=== PATIENT | female | born 1980 | race African-American/Black ===

== ENCOUNTER 2024-10-05 10:29 | Emergency (ER) | payer BC ==
[~2024-10-05] VITALS: Ht 162.6 cm; Wt 79.8 kg
[2024-10-05 10:36] VITALS: RESP 16
[2024-10-05] MEDS ORDERED: MULTI-VITAMIN1 EACH PO (10:41)
[2024-10-05] MEDS: KETOROLAC TROMETHAMINE 30 MG/ML VIAL IV STA (11:14)
[2024-10-05] MEDS: SODIUM CHLORIDE 0.9% 1000ML 1,000 ML IV SCH (11:14)
[2024-10-05] MEDS: METOCLOPRAMIDE HCL 10 MG/2ML VIAL IV ONE (11:15)
[2024-10-05] MEDS ORDERED: DIPHENHYDRAMINE HCL INJ 50 MG/ML VIAL ONE (11:17)
[2024-10-05] MEDS: DIPHENHYDRAMINE HCL INJ 50 MG/ML VIAL IV STA (11:19)
[2024-10-05] MEDS: DIPHENHYDRAMINE HCL 25 MG CAP PO ONE (11:19)
[2024-10-05 13:13] VITALS: PULSE 78; TEMP 98.4; O2SAT 99
== END 2024-10-05 13:16 | disposition home or self-care (01) ==
LOC: ER 10:33
DX: G43.909 Migraine, unspecified, not intractable, without status migrainosus (principal); H53.8 Other visual disturbances
CPT/HCPCS: 93005; 99284; J1200; J1885; J2765; J7030